=== PATIENT | female | born 1950 | race Two or more races ===

== ENCOUNTER 2017-08-26 11:53 | Day surgery (SDC) | payer MEDICARE, BC ==
[~2017-08-26] VITALS: Ht 152.4 cm; Wt 86.0 kg
[2017-08-26 13:15] VITALS: Ht 152.4 cm; Wt 86.0 kg
[2017-08-26] MEDS ORDERED: LINA5TAB PO (13:21)
[2017-08-26] MEDS ORDERED: ATOR20TA38 PO (13:21)
[2017-08-26 13:30] VITALS: BP 144/76; PULSE 74; RESP 24
[2017-08-26] MEDS ORDERED: LIDOCAINE 2% (SDV) 5 ML INJ ONE (13:42)
[2017-08-26] MEDS ORDERED: PROPOFOL 40 ML ONE (13:42)
[2017-08-26] MEDS ORDERED: FENTAnyl 50 MCG/ML VIAL ONE (14:01)
--- NOTE | 2017-08-26 14:32 | OPPN ---
Date/Time of Note Date/Time of Note DATE: 08/26/17 TIME: 14:31 Operative Report Preoperative Diagnosis Positive occult blood in stool Postoperative Diagnosis 2 transverse colon polyps were removed Internal hemorrhoids Operation/Procedure Performed Colonoscopy and biopsy Surgeon see signature line behavioral health assistant None Anesthesia: MAC Estimated blood loss: none Transfusion Required none Specimen Colon polyps Grafts/Implants none Complications none AMANDA SPAULDING MD Aug 26, 2017 14:32
[2017-08-26 14:57] VITALS: BP 110/64; PULSE 68; RESP 24
--- NOTE | 2017-08-27 11:25 | GILP ---
DATE OF PROCEDURE: NAME OF PROCEDURES: Colonoscopy and biopsy. SURGEON: Amanda Matute MD PREOPERATIVE DIAGNOSIS: Positive occult blood in stool. POSTOPERATIVE DIAGNOSES 1. Colonoscopy all the way to the cecum. 2. Two small transverse colon polyps were removed. 3. Internal hemorrhoids. INDICATION FOR THE PROCEDURE: Ms. Oneyda Ralph is a 67-year-old female patient who had positive oc cult blood in stool. The patient was scheduled for colonoscopy for further evaluation. The procedure and possible complications were well explained to the patient. The patient understood and consented to the procedure. DESCRIPTION OF PROCEDURE: Under the influence of anesthesia, the colonoscope was carefully introduc ed in the rectum and under direct vision, it was advanced all the way to the cecum. FINDINGS: The patient had 2 small transverse colon polyps and they were removed using the biopsy fo rceps. She had internal hemorrhoids. She tolerated the procedure very well and there was no complication from the procedure. At the end of the procedures, she was awake with stable vital signs and she was discharged home to the care of her family. IMPRESSION: Please see postoperative diagnosis. PLAN: 1. Await histopathology report. 2. Next screening colonoscopy in 5 years. Dictated By: AMANDA HADDAD/TERE Conf#: [id number] DID#: [id number]
== END 2017-08-26 16:54 | disposition home or self-care (01) ==
LOC: GIL 11:53
PROVIDERS: ATTEND Internal Medicine Gastroenterology
DX: D12.3 Benign neoplasm of transverse colon (principal); R19.5 Other fecal abnormalities; K64.8 Other hemorrhoids; E78.5 Hyperlipidemia, unspecified; E11.9 Type 2 diabetes mellitus without complications; I10 Essential (primary) hypertension
CPT/HCPCS: 45380; 82962; 88305; J3010

== ENCOUNTER 2019-01-26 10:02 | Day surgery (SDC) | payer MEDICARE, BC ==
[2019-01-25 16:14] VITALS: Ht 154.9 cm; Wt 86.0 kg
[2019-01-26] VITALS (14 sets, daily range): BP systolic 123–158; BP diastolic 50–79; PULSE 67–100; RESP 13–18
[~2019-01-26] VITALS: Ht 154.9 cm; Wt 86.0 kg
[~2019-01-26 10:02] MED LIST: ATOR20TA38 PO; CEFAZOLIN 2 GM/50 ML (PMX) 50 ML IVPB ONE; LINA5TAB PO; NEOSTIGMINE 10 MG INJ ONE; ROCURONIUM 50 MG INJ ONE; SOD CHLORIDE 0.9% 1,000 ML IV SCH
[2019-01-26] MEDS ORDERED: LISI1TAB6 PO (10:38)
--- NOTE | 2019-01-26 11:01 | PREAC ---
Date/Time of Note Date/Time of Note DATE: 01/26/19 TIME: 11:01 Anesthesia Eval and Record Evaluation Time Pre-Procedure Interview DATE: 01/26/19 TIME: 11:01 Age 68 Sex female NPO: 8 hrs Preoperative diagnosis gallstones Planned procedure lap choly Past Medical History Past Medical History: Includes Cardio: HTN, Dyslipidemia Endo: Diabetes Surgery & Anesthesia Issues No known issue Meds Anticoagulation: No Beta Aníbal within 24 hr: No Reason Beta Aníbal not given: Pt. not on B-Aníbal Reported Medications Lisinopril/Hydrochlorothiazide (Lisinopril-Hctz 20-12.5 mg Tab) 1 Each Tablet, 1 EACH PO DAILY, TAB 01/26/19 Discontinued Reported Medications Linagliptin (TRADJENTA) 5 Mg Tablet, 5 MG PO DAILY, TAB 08/26/17 Atorvastatin Calcium* (Atorvastatin Calcium*) 20 Mg Tablet, 20 MG PO DAILY, #30 TAB 08/26/17 Current Medications Sodium Chloride 1,000 ml @ 75 mls/hr [id number] IV ; Start 01/26/19 at 08:00; Stop 01/26/19 at 21:19 Meds reviewed: Yes Allergies Coded Allergies: No Known Allergy (Unverified , 08/26/17) Allergies Reviewed: Yes Labs/Studies Labs Reviewed: Reviewed by anesthesiologist test: N/A Pre-procedure Exam Airway: Adequate mouth opening, Adequate thyromental dist Mallampati: Mallampati IV Teeth: Normal Lung: Abnormal (dentures ) Heart: Normal ASA Physical Status ASA physical status: 2 Emergency: None Pre-operative Attestations Prior to commencing anesthesia and surgery, the patient was re-evaluated, there was verification of: *The patient's identity *The results of appropriate recent lab work and preoperative vital signs *The above evaluation not changing prior to induction *Anesthetic plan, risk benefits, alternative and complications discussed with patient/family; questions answered; patient/family understands, accepts and wishes to proceed. LENA AMES DO Jan 26, 2019 11:01
[2019-01-26] MEDS ORDERED: MIDAZOLAM 1 MG/ML 2 ML INJ ONE (11:18)
[2019-01-26] MEDS ORDERED: FENTAnyl 50 MCG/ML VIAL ONE ×2 (11:18→11:19)
[2019-01-26] MEDS ORDERED: LIDOCAINE 2% (SDV) 5 ML INJ ONE (11:18)
[2019-01-26] MEDS ORDERED: SUCCINYLCHOLINE CHLORIDE 100 MG/5 ML SYG IV ONE (11:18)
[2019-01-26] MEDS ORDERED: ETOMIDATE 20 MG INJ ONE (11:18)
[2019-01-26] MEDS ORDERED: ROPIVACAINE 0.5 % 30 ML VIAL ONE (11:27)
[2019-01-26] MEDS ORDERED: ONDANSETRON 4 MG INJ IV PRN (11:30)
[2019-01-26] MEDS ORDERED: LABETALOL HCL 20MG INJ IV PRN (11:30)
[2019-01-26] MEDS ORDERED: hydrALAzine 20 MG INJ IV PRN (11:30)
[2019-01-26] MEDS ORDERED: MEPERIDINE 25 MG INJ IV PRN (11:30)
[2019-01-26] MEDS ORDERED: HYDROmorphONE 1 MG/5 ML IV SYRINGE IV PRN ×2 (11:30)
[2019-01-26] MEDS ORDERED: PHENYLephrine (100 MCG/ML) 5ML SYG ONE (11:40)
[2019-01-26] MEDS ORDERED: ONDANSETRON 4 MG INJ ONE (11:45)
[2019-01-26] MEDS ORDERED: DEXAMETHASONE 4 MG/ML 5 ML INJ ONE (11:45)
[2019-01-26] MEDS ORDERED: CEFAZOLIN 1 GM INJ ONE (11:45)
[2019-01-26] MEDS ORDERED: EPHEDrine 50 MG INJ ONE (11:45)
[2019-01-26] MEDS ORDERED: BUPIVACAINE 0.25% (MPF) 30 ML INJ ONE (12:22)
[2019-01-26] MEDS ORDERED: GLYCOPYRROLATE 0.4 MG INJ ONE (12:25)
[2019-01-26] MEDS ORDERED: HYDROCODONE/APAP (5/325) TAB PO ONE (12:30)
--- NOTE | 2019-01-26 12:30 | OPR ---
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 She required surgical excision of her gallbladder. Risks alternatives benefits and percent were discussed the patient. Patient expressed understanding and consents to the operation. Procedure Description Patient is taken to the OR and prepped and draped in usual sterile fashion. Surgical time was performed. IV antibiotics were given. Supraumbilical incision was made in the midline due to infraumbilical incision from prior surgeries. Dissection with cautery was carried onto the fascia. 0 Vicryl stay sutures were placed on either side of the midline and the fascia was opened. Gruber trocar was introduced. Pneumoperitoneum is established. Midepigastric 12 mm optical trochars placed under direct position. Right upper quadrant upper flank 5 mm optical trochars were placed under direct position. Upon initial inspection there are some adhesions to the gallbladder the gallbladder was distended. Needle decompression was used to suction out some the contents of the gallbladder which were thickened bile. The gallbladder was then grasped the fundus and retracted lateral cephalad direction. [place] graspers were used to dissect out the cystic duct and cystic artery. The critical view was established. The cystic duct was thickened and was divided with a lap scopic 35 mm echelon vascular stapler. The staple line was reinforced with clips. Cystic artery was divided 3 clips proximal to distal division was performed with lap aroscopic scissors. The gallbladder was taken down with cautery. The hemostasis was established in the surgical bed. Gallbladder was retrieved using Endo Catch bag. Suction irrigation was used to clean out the surgical bed. Good hemostasis was reestablished. The gallbladder is retrieved using Endo Catch bag. All ports were removed under direct position. Running 0 Vicryl was used to close the supraumbilical midline incision. Skin was then closed with skin taylor and all surgical port sites. Therapeutic contains local anesthesia was injected. Additionally a tap block was performed by the anesthesiologist to begin the case. Dry dressings were applied. Ted KRAMER Jan 26, 2019 12:30
--- NOTE | 2019-01-26 13:00 | PAC ---
Date/Time of Note Date/Time of Note DATE: 01/26/19 TIME: 12:59 Post-Anesthesia Notes Post-Anesthesia Note Last documented vital signs Vital Signs Date Temp Pulse Resp B/P (MAP) Pulse Ox O2 O2 Flow FiO2 Time Delivery Rate 01/26/19 98 80 18 150/62 97 Room Air 1259 Activity: WNL Respiratory function: WNL Cardiovascular function: WNL Mental status: Baseline Pain reasonably controlled: Yes Hydration appropriate: Yes Nausea/Vomiting absent: Yes LENA AMES DO Jan 26, 2019 13:00
== END 2019-01-26 14:53 | disposition home or self-care (01) ==
LOC: SDS 10:02
PROVIDERS: ATTEND Surgery
DX: K80.10 Calculus of gallbladder with chronic cholecystitis without obstruction (principal); I10 Essential (primary) hypertension; E78.5 Hyperlipidemia, unspecified; E11.9 Type 2 diabetes mellitus without complications
CPT/HCPCS: 47562; 82962; J0690; J1100; J1170; J2175; J2250; J2370; J2405; J2795; J3010; 88304; J2710